=== PATIENT | female | born 1965 | race Caucasian/White ===

== ENCOUNTER 2016-07-26 16:06 | Emergency (ER) | payer OTHER ==
[~2016-07-26] VITALS: Ht 165.1 cm; Wt 58.7 kg
[~2016-07-26 16:06] MED LIST: LEVO125T72 PO; ONDA8TAB6 SL
[2016-07-26 16:14] VITALS: TEMP 36.6; Ht 165.1 cm; Wt 58.7 kg
[2016-07-26] MEDS ORDERED: DiphenhydrAMINE HCL 50 MG/ML VIAL IV STA (17:06)
[2016-07-26] MEDS ORDERED: SODIUM CHLORIDE 0.9% 1000ML 1,000 ML IV STA (17:06)
[2016-07-26] MEDS ORDERED: KETOROLAC TROMETHAMINE 30 MG/ML VIAL IV STA (17:06)
[2016-07-26] MEDS ORDERED: PROCHLORPERAZINE 5 MG/ML 2 ML VIAL IV STA (17:06)
[2016-07-26 18:16] VITALS: BP 112/76; PULSE 69; O2SAT 100
--- NOTE | 2016-07-26 20:25 | EMERGENCY ROOM VISIT NOTE ---
History Report prepared by Jacob: Mei Alcantar Under the Supervision of: Dr. Dmitry Parker M.D. First contact with patient: 17:00 Chief Complaint: HEADACHE Stated Complaint: MIGRAINE, VOMITING History of Present Illness The patient is a 51 year old female who presents to the Emergency Room with complaints of a constant viselike headache beginning last night. The patient states that she has a history of migraines and takes Maxalt for her pain. She reports that she took a Maxalt last night before she went to bed and when she woke up this morning the pain was still bad so she took a hydrocodone without relief of her symptoms. She complains of vomiting and epigastric abdominal pain from continued vomiting. She notes that the pain in her head is on the left side and its is worse with light but better with ice. She also states that she has been laying in bed all day and has not been exposed to the light often. The patient denies any head injury or fever. She reports that she has not been able to keep much down. She does state that her headache feels like her prior migraines. Source of History: patient Onset: last night Position: head Quality: other (throbbing) Modifying Factors (Worsening): other (light) Modifying Factors (Relieving): other (ice) Associated Symptoms: + abdominal pain, + vomiting, No fevers Note: She denies any head injury. Review of Systems See HPI for pertinent positives & negatives. A total of 10 systems reviewed and were otherwise negative. Past Medical & Surgical Medical Problems: (1) Back pain (2) CHRONIC SINUSITIS NOS (3) HYPOTHYROIDISM NOS (4) MIGRAINE UNSPECIFIED W/O INTRACT MGRN W/O STATUS MIGRAINOSUS Family History No pertinent family history stated. Social History Smoking Status: Never Smoker Alcohol Use: occasionally Drug Use: none Marital Status: Occupation Status: employed Current/Historical Medications Scheduled Levothyroxine Sodium (Synthroid), 1 TAB PO DAILY Naproxen (Aleve), 442 MG PO PRN UD Rizatriptan Benzoate (Maxalt), 10 MG PO UD Scheduled PRN Ondansetron Hcl (Zofran), 8 MG SL BID PRN for Nausea Allergies Coded Allergies: Erythromycin (Verified Adverse Reaction, Unknown, severe nausea, 05/13/16) Physical Exam Vital Signs Date Time Temp Pulse Resp B/P Pulse Ox O2 Delivery O2 Flow Rate FiO2 2/4/17 18:16 69 16 112/76 100 07/26/16 16:14 36.6 77 18 109/70 99 Physical Exam Constitutional: Vital signs reviewed. Eyes: Pupils are equal round reactive to light. Conjunctiva are noninjected. ENT: Pharynx is clear without erythema or exudate. Mucous membranes are dry. Neck supple without meningeal signs. Respiratory: Clear to auscultation bilaterally. Breath sounds are equal bilaterally. Cardiovascular: Regular rate and rhythm. No rubs or gallops. GI: Soft, nondistended and nontender. Bowel sounds are present. Musculoskeletal: No peripheral edema. Integumentary: No cyanosis. Neurological: The patient is awake and alert. Cranial nerves II-XII are intact. Motor is 5 out of 5 all extremities. Sensation is intact to light touch all extremities. Normal speech. No pronator drift. Psychiatric: Normal affect. Medical Decision & Procedures Medications Administered Medications (Trade) Dose Ordered Sig/Ajson Route Start Time Stop Time Status Last Admin Dose Admin Sodium Chloride (Nss 1000ml) 1,000 ml @ 999 mls/hr Q1H1M STAT IV 07/26/16 17:06 07/26/16 18:06 DC 07/26/16 17:23 999 MLS/HR Prochlorperazine Edisylate (Compazine Inj) 10 mg NOW STAT IV 07/26/16 17:06 07/26/16 17:08 DC 07/26/16 17:23 10 MG Diphenhydramine HCl (Benadryl Inj) 25 mg NOW STAT IV 07/26/16 17:06 07/26/16 17:08 DC 07/26/16 17:25 25 MG Ketorolac Tromethamine (Toradol Inj) 10 mg NOW STAT IV 07/26/16 17:06 07/26/16 17:08 DC 07/26/16 17:25 10 MG ED Course 1700: The patient was evaluated in room D9. A complete history and physical exam was performed. 1706: Toradol Inj 10mg IV, Benadryl Inj 25mg IV, Compazine Inj 10mg IV, Sodium Chloride 1000 ml @ 999 mls/hr IV. 1804: I reevaluated the patient, she is feeling much better, her headache is gone and she is ready to go home. 1815: Upon reevaluation, the patient appeared to have improvement of her symptoms. I discussed tontheo's findings with the patient. She verbalized agreement of the treatment plan. The patient was discharged home. Medical Decision This is a 51-year-old female presents with headache and vomiting. I did perform a limited focused review of portions of the patient's old chart on the electronic medical record. The patient was seen here in April for a migraine headache. I did evaluate the patient as noted above. The patient is presenting with a headache consistent with her prior migraines. She is not febrile and has had no head injury. She is neurologically intact. I have no reason to suspect intracranial hemorrhage or meningitis. She does appear to be clinically dehydrated. IV access was established. I did treat the patient with normal saline, Compazine, Toradol and Benadryl IV. I did reassess the patient. She is feeling much better and feels ready to go home. She states her headache has resolved. She was advised follow up with her doctor. She was given return instructions as outlined below. She was discharged in good condition. Impression Primary Impression: Headache Additional Impression: Dehydration Scribe Attestation The scribe's documentation has been prepared under my direct and personally reviewed by me in its entirety. I confirm that the note above accurately reflects all work, treatment, procedures, and medical decision making performed by me. Departure Information Dispostion Home / Self-Care Referrals Radha Olivo M.D. (PCP) Forms HOME CARE DOCUMENTATION FORM, IMPORTANT VISIT INFORMATION Patient Instructions Dehydration, ED Headache Migraine, My [facility] Additional Instructions You have been examined and treated today on an emergency basis only. This is not a substitute for, or an effort to provide, complete comprehensive medical care. It is impossible to recognize and treat all injuries or illnesses in a single emergency department visit. It is therefore important that you follow up closely with your physician. Call as soon as possible for an appointment. Return for worsening symptoms or if you develop fever or any other concerning symptoms. Problem Qualifiers Primary Impression: Headache Headache type: unspecified Headache chronicity pattern: acute headache Intractability: not intractable Qualified Codes: R51 - Headache
[2017-02-13] MEDS ORDERED: NAPR1TAB9 PO (17:25)
[2017-02-13] MEDS ORDERED: RIZA10TA18 PO (19:10)
== END 2016-07-26 18:17 | disposition home or self-care (01) ==
LOC: C.EDB 16:07 → C.EDD 18:17
DX: R51 Headache (principal); R11.10 Vomiting, unspecified; R10.13 Epigastric pain; E03.9 Hypothyroidism, unspecified; Z79.899 Other long term (current) drug therapy; E86.0 Dehydration

== ENCOUNTER → 2017-01-02 | Outpatient (CLI) | payer OTHER ==
[~2017-01-02] MED LIST changes: +NAPR1TAB9 PO; +RIZA10TA18 PO
--- NOTE | 2017-01-02 11:13 | DIAGNOSTIC IMAGING REPORT ---
C-SPINE ROUTINE 4 OR 5 VIEWS CLINICAL HISTORY: NECK PAIN, Z86.19 E03.9 COMPARISON STUDY: 12/07/2006 FINDINGS: The prevertebral soft tissues are normal. There is slight straightening of normal cervical lordosis. There are degenerative changes with disc space narrowing most pronounced at the C5-6 level. There are small posterior osteophytes. IMPRESSION: Progressive degenerative changes the C5-6 level. No acute fractures or subluxations are visualized. Electronically signed by: Brian Talamantes M.D. 01/02/2017 11:11 AM Dictated Date/Time: 01/02/2017 11:10 AM
== END | disposition home or self-care (01) ==
LOC: C.RAD 10:12
PROVIDERS: ATTEND Physician Assistant
DX: Z86.19 Personal history of other infectious and parasitic diseases (principal); E03.9 Hypothyroidism, unspecified; M54.2 Cervicalgia

== ENCOUNTER 2017-02-13 20:13 | Emergency (ER) | payer OTHER ==
[~2017-02-13] VITALS: Ht 166.4 cm; Wt 60.6 kg
[2017-02-13 20:15] VITALS: TEMP 36.6; Ht 166.4 cm; Wt 60.6 kg
[2017-02-13] MEDS ORDERED: DiphenhydrAMINE HCL 50 MG/ML VIAL IV STA (20:59)
[2017-02-13] MEDS ORDERED: DEXAMETHASONE SOD INJ 4 MG/ML VIAL IV STA (20:59)
[2017-02-13] MEDS ORDERED: PROCHLORPERAZINE 5 MG/ML 2 ML VIAL IV STA (20:59)
[2017-02-13] MEDS ORDERED: KETOROLAC TROMETHAMINE 30 MG/ML VIAL IV STA (20:59)
[2017-02-13] MEDS ORDERED: DOXY100T PO (21:08)
[2017-02-13] MEDS ORDERED: LEVO137T3 PO (21:08)
--- NOTE | 2017-02-13 21:11 | EMERGENCY ROOM VISIT NOTE ---
History First contact with patient: 20:21 Chief Complaint: NEURO SYMPTOMS Stated Complaint: NUMBNESS IN EYES,NECK PAIN Nursing Triage Summary: Patient states "I think I am having a weird migrane. The right side of my face is going numb. I have pain on my neck." History of Present Illness The patient is a 51 year old female who presents to the Emergency Room with complaints of a mild headache, neck pain and neurologic symptoms that started yesterday. The patient reports a history of chronic neck pain. She had x-rays a few weeks ago that showed mild degeneration. The patient also has a history of migraines. She thinks that this may be an atypical migraine. She usually has nausea and vomiting, which she does not complain of today. She is complaining of a numbness sensation on the right side for cheek that started at approximately 6:00 tonight. She is also complaining of some intermittent blurry vision. She denies any recent fever, chills, sore throat or sinus infection. She is currently being treated for Lyme disease with doxycycline. She denies any facial pain. She is experiencing pain on the right lateral aspect of her neck going into her trapezius muscle. This has been going on for quite some time. She denies any photophobia or phonophobia Review of Systems 10 system review performed and negative unless noted in HPI or below Past Medical/Surgical History Medical Problems: (1) Back pain (2) CHRONIC SINUSITIS NOS (3) HYPOTHYROIDISM NOS (4) MIGRAINE UNSPECIFIED W/O INTRACT MGRN W/O STATUS MIGRAINOSUS Family History Grandfather-CVA Social History Smoking Status: Never Smoker Alcohol Use: occasionally Drug Use: none Marital Status: Occupation Status: employed Current/Historical Medications Scheduled Doxycycline Hyclate (Doxycycline Hyclate), 100 MG PO BID Levothyroxine Sodium (Levothyroxine Sodium), 137 MCG PO DAILY Scheduled PRN Naproxen (Aleve), 442 MG PO UD PRN for Pain Rizatriptan Benzoate (Maxalt), 10 MG PO UD PRN for Migraine Physical Exam Vital Signs Date Time Temp Pulse Resp B/P (MAP) Pulse Ox O2 Delivery O2 Flow Rate FiO2 02/13/17 20:15 36.6 64 18 134/55 99 Room Air Physical Exam VITALS: Vitals are noted on the nurse's note and reviewed by myself. Vital signs stable. GENERAL: 51-year-old female, mildly anxious in appearance,, in no acute distress , well-developed well-nourished. SKIN: Mild flat, erythematous, blotchy redness noted to the lateral aspect of the neck and posterior to the right ear. HEAD: Normocephalic atraumatic. EARS: External auditory canals clear, tympanic membranes pearly jackson without erythema or effusion bilaterally. EYES: Pupils equal round and reactive to light and accommodation. Conjunctivae without injection, sclerae without icterus. Extraocular movements intact. NOSE: Patent, turbinates without inflammation or discharge. No sinus tenderness. MOUTH: Mucous membranes slightly dry. Tonsils are not enlarged. Pharynx without erythema or exudate. Uvula midline. Airway patent. Tongue does not deviate. NECK: Supple without nuchal rigidity. No lymphadenopathy. Cervical spine is nontender. No JVD. HEART: Regular rate and rhythm without murmurs gallops or rubs. LUNGS: Clear to auscultation bilaterally without wheezes, rales or rhonchi. No accessory muscle use. ABDOMEN: Positive bowel sounds x 4.Soft, MUSCULOSKELETAL: No muscle atrophy, erythema, or edema noted. Full range of motion in all extremities. No tenderness to palpation. Normal gait. Strength 5/5 throughout. No tenderness elicited NEURO: Patient was alert and oriented to person place and time. Normal sensation to touch. No focal neurological deficits. Medical Decision & Procedures ER Provider Diagnostic Interpretation: HEAD WITHOUT CONTRAST (CT) CLINICAL HISTORY: 51 years-old Female with blurry vision. Acute right-sided facial numbness. TECHNIQUE: Multiple axial CT images of the head were obtained without contrast. A dose lowering technique was utilized adhering to the principles of ALARA. CT DOSE: 601.98 mGy.cm COMPARISON: None. FINDINGS: No acute intracranial hemorrhage, midline shift, mass, large territorial ischemia or abnormal extra-axial collection. There is an ill-defined area of low attenuation within the subcortical white matter of the right frontal lobe seen on image 16 of the axial series which is nonspecific and may be artifactual. The calvarium is intact. The paranasal sinuses, mastoid air cells, and middle ear cavities are clear. IMPRESSION: No acute intracranial abnormality. Negative for hemorrhage or territorial ischemia. The above report was generated using voice recognition software. It may contain grammatical, syntax or spelling errors. Electronically signed by: Michel Velarde M.D. 02/13/2017 9:11 PM Dictated Date/Time: 02/13/2017 9:08 PM The status of this report is Signed. Draft = Not yet reviewed or approved by Radiologist. Signed = Reviewed and approved by Radiologist. Laboratory Results 02/13/17 20:55 Red Blood Count 4.38, Mean Corpuscular Volume 85.8, Mean Corpuscular Hemoglobin 29.5, Mean Corpuscular Hemoglobin Concent 34.3, Mean Platelet Volume 10.6, Neutrophils (%) (Auto) 49.9, Lymphocytes (%) (Auto) 38.1, Monocytes (%) (Auto) 9.3, Eosinophils (%) (Auto) 2.2, Basophils (%) (Auto) 0.3, Neutrophils # (Auto) 3.02, Lymphocytes # (Auto) 2.30, Monocytes # (Auto) 0.56, Eosinophils # (Auto) 0.13, Basophils # (Auto) 0.02 02/13/17 20:55 Test 02/13/17 20:55 White Blood Count 6.04 K/uL (4.8-10.8) Red Blood Count 4.38 M/uL (4.2-5.4) Hemoglobin 12.9 g/dL (12.0-16.0) Hematocrit 37.6 % (37-47) Mean Corpuscular Volume 85.8 fL (80-100) Mean Corpuscular Hemoglobin 29.5 pg (25-34) Mean Corpuscular Hemoglobin Concent 34.3 g/dl (32-36) Platelet Count 180 K/uL (130-400) Mean Platelet Volume 10.6 fL (7.4-10.4) Neutrophils (%) (Auto) 49.9 % Lymphocytes (%) (Auto) 38.1 % Monocytes (%) (Auto) 9.3 % Eosinophils (%) (Auto) 2.2 % Basophils (%) (Auto) 0.3 % Neutrophils # (Auto) 3.02 K/uL (1.4-6.5) Lymphocytes # (Auto) 2.30 K/uL (1.2-3.4) Monocytes # (Auto) 0.56 K/uL (0.11-0.59) Eosinophils # (Auto) 0.13 K/uL (0-0.5) Basophils # (Auto) 0.02 K/uL (0-0.2) RDW Standard Deviation 40.9 fL (36.4-46.3) RDW Coefficient of Variation 13.0 % (11.5-14.5) Immature Granulocyte % (Auto) 0.2 % Immature Granulocyte # (Auto) 0.01 K/uL (0.00-0.02) Anion Gap 3.0 mmol/L (3-11) Est Creatinine Clear Calc Drug Dose 71.9 ml/min Estimated GFR () 92.6 Estimated GFR (Non- 79.9 BUN/Creatinine Ratio 13.7 (10-20) Calcium Level 8.9 mg/dl (8.5-10.1) Magnesium Level 2.2 mg/dl (1.8-2.4) Medications Administered Medications (Trade) Dose Ordered Sig/Jason Route Start Time Stop Time Status Last Admin Dose Admin Diphenhydramine HCl (Benadryl Inj) 25 mg NOW STAT IV 02/13/17 20:59 02/13/17 21:01 DC 02/13/17 21:23 25 MG Prochlorperazine Edisylate (Compazine Inj) 5 mg NOW STAT IV 02/13/17 20:59 02/13/17 21:01 DC 02/13/17 21:21 5 MG Ketorolac Tromethamine (Toradol Inj) 30 mg NOW STAT IV 02/13/17 20:59 02/13/17 21:01 DC 02/13/17 21:20 30 MG Dexamethasone Sodium Phosphate (Decadron Inj) 10 mg NOW STAT IV 02/13/17 20:59 02/13/17 21:01 DC 02/13/17 21:23 10 MG Sodium Chloride 1,000 ml @ 999 mls/hr Q1H1M ONCE IV 02/13/17 21:15 02/13/17 22:15 DC 02/13/17 21:19 999 MLS/HR Cyclobenzaprine HCl (FLEXERIL 10MG Home Pack) 1 homepack ONCE PO 02/13/17 22:30 02/13/17 22:31 02/13/17 22:24 1 HOMEPACK ED Course Patient was seen and examined Vital signs including blood pressure were reviewed medications list was verified with patient Labs were obtained, and a saline lock was established The patient was given Benadryl 25 mg, Compazine 5 mg, Toradol 30 mg IV. She was also given Decadron 10 mg IV. She was hydrated with 1 L of normal saline. Upon reevaluation, the patient was sleeping in bed. She thinks that her symptoms are slightly better. We thoroughly discussed her workup. We also discussed a plan going forward. She and her were comfortable with this plan. The patient was provided a Flexeril home pack I reviewed discharge instructions the patient. They voiced understanding and had no further questions. Medical Decision Differential includes: Acute intracranial bleed, trauma, meningitis, encephalitis, increased intracranial pressure, mass or mass effect, facial or dental infection, temporal arteritis, CVA, TIA, acute hypertensive emergency, sinusitis, carbon monoxide exposure, trigeminal neuralgia, herpes zoster, chronic neck pain, muscle spasm, multiple sclerosis This patient is a 51-year-old female that presented to the emergency department complaining of facial numbness, right lateral neck pain and a mild headache. She does have a history of migraines, however she said this one seems different. This prompted me to perform a workup in quitting blood work and a CT scan. She was given Toradol, Benadryl, Decadron and fluids with good symptomatic relief. It is possible that this is an atypical migraine. This could still be related to the patient's history of Lyme disease. Other possibilities would include a workup for multiple sclerosis. I have a low suspicion of CVA or TIA as the patient does not have any abnormal neurologic findings on exam. Her CT of the head is negative. I did order a Lyme IgG and IgM. I suggested that the patient continued to take Aleve for her ongoing neck pain. She was also given a prescription for Flexeril, which could help relieve some of the tension. I advised that the patient call her neurologist first thing Thursday morning for a follow-up appointment. She was advised to also return to the emergency department with any new or worsening symptoms. She and her were comfortable with this plan. This chart was completed in part utilizing [employer] Voice Recognition software. Attempts were made to minimize the grammatical errors, random word insertions, pronoun errors and incomplete sentences. Any formal questions or concerns about the content, text or information contained within the body of this dictation should be directly addressed to the provider for clarification. Medication Reconcilliation Current Medication List: was personally reviewed by me Blood Pressure Screening Patient's blood pressure: Normal blood pressure Impression Primary Impression: Neck pain Additional Impression: Neurological symptoms Departure Information Dispostion Home / Self-Care Condition GOOD Prescriptions Cyclobenzaprine Hcl (FLEXERIL) 10 Mg Tab 10 MG PO TID for Muscle Spasms, #15 TAB Prov: Gabriella Monahan PA-C 02/13/17 Referrals Radha Olivo M.D. (PCP) Patient Instructions My [facility] Additional Instructions You were evaluated in the emergency department with facial numbness, headache and neck pain. A CT of the head did not show any signs of stroke. It is possible that it is a combination of neck pain and Lyme disease causing your symptoms. Please take Flexeril every 8 hours as needed for muscle spasms/neck pain. This may make you drowsy. Please do not drive while taking this medication. Please continue doxycycline as prescribed. Please follow-up with your neurologist as soon as possible. If your symptoms persist, you may need further testing Return to the emergency department if you have any of the following symptoms: -Confusion -Slurred speech -Weakness on one side of your body -Worsening numbness -Worsening pain Problem Qualifiers
[2017-02-13] MEDS ORDERED: SODIUM CHLORIDE 0.9% 1000ML 1,000 ML IV ONE (21:15)
[2017-02-13 21:23] LABS: BASO % 0.3 %; BASO ABS # 0.02 K/uL (0-0.2); COMPLETE YES; EOS % 2.2 %; HEMATOCRIT 37.6 % (37-47); IG% 0.2 %; LYMPH % 38.1 %; MEAN CELL VOLUME 85.8 fL (80-100); MEAN CORPUSCULAR HEMOGLOBIN 29.5 pg (25-34); MEAN CORPUSCULAR HGB CONC 34.3 g/dl (32-36); MEAN PLATELET VOLUME 10.6 fL (7.4-10.4); MONO % 9.3 %; NEUT % 49.9 %; PLATELET COUNT 180 K/uL (130-400); RED BLOOD COUNT 4.38 M/uL (4.2-5.4); WHITE BLOOD COUNT 6.04 K/uL (4.8-10.8)
[2017-02-13 21:36] LABS: BUN/CREATININE RATIO 13.7 (10-20); CALCIUM 8.9 mg/dl (8.5-10.1); CREATININE 0.84 mg/dl (0.60-1.20); MAGNESIUM 2.2 mg/dl (1.8-2.4); POTASSIUM 3.7 mmol/L (3.5-5.1)
[2017-02-13] MEDS ORDERED: FLEXERIL HOME PACK 10 MG VIAL PO ONE (22:30)
[2017-02-13] MEDS ORDERED: CYCL10TA6 PO (22:33)
[2017-02-13 22:40] VITALS: BP 122/73; PULSE 71; O2SAT 98
[2017-02-13 23:18] LABS: LYME DISEASE AB IGG NEG (NEG)
[2017-02-13 23:21] LABS: LYME DISEASE AB IGM EQUIVOCAL (NEG)
[2017-02-21 05:10] LABS: 18KDIGG BAND NONREACTIVE (NONREACTIVE); 23KDIGG BAND REACTIVE (NONREACTIVE); 23KDIGM BAND NONREACTIVE (NONREACTIVE); 28KDIGG BAND NONREACTIVE (NONREACTIVE); 30KDIGG BAND REACTIVE (NONREACTIVE); 39KDIGG BAND REACTIVE (NONREACTIVE); 39KDIGM BAND REACTIVE (NONREACTIVE); 41KDIGG BAND REACTIVE (NONREACTIVE); 41KDIGM BAND REACTIVE (NONREACTIVE); 45KDIGG BAND NONREACTIVE (NONREACTIVE); 58KDIGG BAND REACTIVE (NONREACTIVE); 66KDIGG BAND REACTIVE (NONREACTIVE); 93KDIGG BAND NONREACTIVE (NONREACTIVE)
== END 2017-02-13 22:41 | disposition home or self-care (01) ==
LOC: C.EDB 20:14 → C.EDC 22:41
DX: M54.2 Cervicalgia (principal); G89.29 Other chronic pain; R51 Headache; R20.0 Anesthesia of skin; A69.20 Lyme disease, unspecified; E03.9 Hypothyroidism, unspecified; Z82.3 Family history of stroke

== ENCOUNTER → 2017-05-18 | Outpatient (CLI) | payer OTHER ==
[~2017-05-18] MED LIST changes: +DOXY100T PO; -LEVO125T72 PO; +LEVO137T3 PO; -ONDA8TAB6 SL
== END | disposition home or self-care (01) ==
LOC: C.LAB 09:16
PROVIDERS: ATTEND Family Medicine
DX: E03.4 Atrophy of thyroid (acquired) (principal)